=== PATIENT | male | born 1940 | race Caucasian/White ===

== ENCOUNTER 2018-04-08 10:23 | Day surgery (SDC) | payer MEDICARE ==
[~2018-04-08] VITALS: Ht 170.2 cm; Wt 86.2 kg
[~2018-04-08 10:23] MED LIST: ALLOPURINOL300 MG PO; ASPIRIN 8181 MG PO; ATENOLOL50 MG PO; DEBROX6.5 % AD; FISH OIL1400 MG PO; FLUARIX QUADRIV1 INJ IM; GLIMEPIRIDE4 MG PO; INDAPAMIDE2.5 MG PO; JANUVIA100 MG PO; LATANOPROST0.005 % OP; LISINOP/HCTZ1 TA1 PO; LISINOPRIL20 MG PO; METFORMIN HCL1000 MG PO; PAROXETINE20 MG PO; POTASSIUM CITR15 MEQ PO; PRAVASTATIN40 MG PO; PRILOSEC20 MG PO; RANITIDINE150 MG PO; SLO-MAG PO; TAMSULOSIN0.4 MG PO
[2018-04-08 14:26] VITALS: BP 122/72
== END 2018-04-08 14:15 | disposition home or self-care (01) ==
LOC: ENDO 10:23 → ORM 14:00 → ENDO 14:10
PROVIDERS: ATTEND Internal Medicine Gastroenterology
PROC: 0DBE8ZX Excision of Large Intestine, Via Natural or Artificial Opening Endoscopic, Diagnostic (ICD-10-PCS; principal; 2018-04-08)
PROC: 0DBN8ZX Excision of Sigmoid Colon, Via Natural or Artificial Opening Endoscopic, Diagnostic (ICD-10-PCS; 2018-04-08)
PROC: 0DBL8ZX Excision of Transverse Colon, Via Natural or Artificial Opening Endoscopic, Diagnostic (ICD-10-PCS; 2018-04-08)
PROC: 0DBH8ZX Excision of Cecum, Via Natural or Artificial Opening Endoscopic, Diagnostic (ICD-10-PCS; 2018-04-08)
PROC: 0DB98ZX Excision of Duodenum, Via Natural or Artificial Opening Endoscopic, Diagnostic (ICD-10-PCS; 2018-04-08)
PROC: 0DB48ZX Excision of Esophagogastric Junction, Via Natural or Artificial Opening Endoscopic, Diagnostic (ICD-10-PCS; 2018-04-08)
DX: K57.31 Diverticulosis of large intestine without perforation or abscess with bleeding (principal); K64.4 Residual hemorrhoidal skin tags; K64.8 Other hemorrhoids; R19.7 Diarrhea, unspecified; D12.0 Benign neoplasm of cecum; D12.5 Benign neoplasm of sigmoid colon; D12.3 Benign neoplasm of transverse colon; K29.70 Gastritis, unspecified, without bleeding; K21.9 Gastro-esophageal reflux disease without esophagitis; K44.9 Diaphragmatic hernia without obstruction or gangrene; I10 Essential (primary) hypertension; E78.00 Pure hypercholesterolemia, unspecified; Z79.899 Other long term (current) drug therapy; Z86.010 Personal history of colon polyps; Z87.442 Personal history of urinary calculi; Z85.828 Personal history of other malignant neoplasm of skin

== ENCOUNTER 2023-01-16 21:07 | Observation (INO) | payer OTHER, MEDICARE ==
[2023-01-16] VITALS (11 sets, daily range): BP systolic 111–169; BP diastolic 51–100
[~2023-01-16] VITALS: Ht 170.2 cm; Wt 87.0 kg
[2023-01-16 21:51] LABS: BASO% 0.1 % (0-3); HEMOGLOBIN 12.7 g/dl (14.0-18.0); IMMATURE GRANULOCYTES 0.2 % (0.0-5.0); LYMPH% 7.8 % (15-41); MEAN CELL VOLUME 91.4 fL CALC (80.0-100.0); MEAN CORPUSCULAR HGB 30.4 pG CALC (26.0-32.0); MEAN CORPUSCULAR HGB CONC 33.2 g/dL CAL (32.0-36.0); MONO% 2.7 % (2-13); NEUT# 8.12 thou/uL (1.82-7.42); NEUT% 89.2 % (42-76); RED BLOOD COUNT 4.18 mill/uL (4.70-6.10)
[2023-01-16 21:52] LABS: HEMATOCRIT 38.2 % (39.0-50.0)
--- NOTE | 2023-01-16 22:00 | NUR ---
PT BROUGHT IN BY KINA WITH COMPLAINTS OF WEAKNESS. PT WHEELED TO ROOM 10 FOR TRAIGE AND CARE
[2023-01-16 22:04] LABS: ALBUMIN 3.9 g/dL (3.2-5.0); ALKALINE PHOSPHATASE 85 u/l (38-126); BUN 30 mg/dL (8-23); BUN/CREATININE RATIO 16 (12-20 (CALC)); CHLORIDE 105 mmol/l (95-108); CREATININE 1.8 mg/dL (0.7-1.3); GFR FOR AFR.AMER. 44 ML/MIN (>=60 (CALC)); GFR OTHER RACES 36 ML/MIN (>=60 (CALC)); SGOT/AST 24 u/l (19-48); TOTAL PROTEIN 6.8 g/dL (6.3-8.2)
[2023-01-16 22:07] LABS: ANION GAP 18 (6-22 (CALC)); BILIRUBIN, TOTAL 0.2 mg/dL (0.2-1.3); CARBON DIOXIDE 20 mmol/l (22-30); POTASSIUM 3.9 mmol/l (3.5-5.1); SODIUM 139 mmol/l (137-146)
[2023-01-16] MEDS ORDERED: VALTREX500 MG PO (22:39)
[2023-01-16] MEDS ORDERED: PREDNISONE20 MG PO (22:40)
[2023-01-17] VITALS (23 sets, daily range): BP systolic 125–171; BP diastolic 71–98
[2023-01-17 03:04] LABS: URINE BILIRUBIN - DIPSTICK NEGATIVE (NEGATIVE); URINE BLOOD DIPSTICK NEGATIVE (NEGATIVE); URINE COLOR YELLOW; URINE GLUCOSE - DIPSTICK NEGATIVE (NEGATIVE); URINE KETONE TRACE mg/dL (NEGATIVE); URINE LEUK ESTERASE NEGATIVE (NEGATIVE); URINE NITRITE - DIPSTICK NEGATIVE (Negative); URINE PROTEIN - DIPSTICK NEGATIVE (NEG-TRACE); URINE SPECIFIC GRAVITY 1.015; URINE UROBILINOGEN - DIPSTICK 0.2 E.U./dL (0.2)
--- NOTE | 2023-01-17 04:54 | NUR ---
PT SLEEPING AT THIS TIME. WAITING FOR A ROOM ON THE FLOOR
--- NOTE | 2023-01-17 05:00 | NUR ---
REPORT GIVEN TO ICU. PT WILL BE TAKEN UP STAIRS IN BED
--- NOTE | 2023-01-17 07:35 | NUR ---
REPORT RECEIVED FROM WEATHERSEAL TECHNICIAN - PT OBSERVED IN BED WITH EYES CLOSED - STABLE ON MONITOR - NO S/S DISTRESS - CALL LIGHT IN REACH
--- NOTE | 2023-01-17 09:00 | NUR ---
PT RESTING IN BED - MRI SCREENING COMPLETE, AWAITING CALL TO SEND PT - NO CONCERNS AT THIS TIME
--- NOTE | 2023-01-17 11:00 | NUR ---
MRI COMPLETED - PENDING RESULTS
--- NOTE | 2023-01-17 13:00 | NUR ---
PT RESTING IN BED WITH DAUGHTER BEDSIDE - NO S/S DISTRESS ON ROOM AIR - PT DENIES PAIN OR ANY NEEDS - CALL LIGHT IN REACH
--- NOTE | 2023-01-17 15:42 | NUR ---
PT READING A BOOK IN CHAIR - UP AD MIKE - NO CONCERNS FOR SAFETY - DENIES ANY NEEDS - CALL LIGHT IN REACH
--- NOTE | 2023-01-17 17:37 | NUR ---
PT EATING DINNER BEDSIDE - DENIES ANY NEEDS - NO S/S DISTRESS - CALL LIGHT IN REACH
[2023-01-18 00:01] VITALS: BP 154/84
[2023-01-18 04:01] VITALS: BP 161/87
[2023-01-18 05:52] LABS: HEMATOCRIT 37.9 % (39.0-50.0); HEMOGLOBIN 12.3 g/dl (14.0-18.0); MEAN CELL VOLUME 93.8 fL CALC (80.0-100.0); MEAN CORPUSCULAR HGB 30.4 pG CALC (26.0-32.0); MEAN CORPUSCULAR HGB CONC 32.5 g/dL CAL (32.0-36.0); RED BLOOD COUNT 4.04 mill/uL (4.70-6.10); RED CELL DISTRI WIDTH 13.1 % (11.5-15.5)
[2023-01-18 06:12] LABS: ALKALINE PHOSPHATASE 60 u/l (38-126); ANION GAP 7 (6-22 (CALC)); BUN 22 mg/dL (8-23); BUN/CREATININE RATIO 22 (12-20 (CALC)); CARBON DIOXIDE 24 mmol/l (22-30); CHLORIDE 110 mmol/l (95-108); GFR FOR AFR.AMER. > 60 ML/MIN (>=60 (CALC)); GFR OTHER RACES > 60 ML/MIN (>=60 (CALC)); MAGNESIUM 1.5 mg/dL (1.6-2.3); POTASSIUM 3.9 mmol/l (3.5-5.1); SGOT/AST 24 u/l (19-48); SODIUM 137 mmol/l (137-146)
[2023-01-18 06:17] LABS: ALBUMIN 3.1 g/dL (3.2-5.0); BILIRUBIN, TOTAL 0.4 mg/dL (0.2-1.3); TOTAL PROTEIN 5.4 g/dL (6.3-8.2)
--- NOTE | 2023-01-18 07:00 | NUR ---
REPORT RECEIVED FROM MANISHA SINGHSOFTWARE SALESSWIMMING POOL SERVICEPERSON. PATIENT OBSERVED RESTING IN BED WITH EYES CLOSE. STABLE ON MONITOR. NO S-S DISTRES. SAFETY AND FALL PRECAUTIONS IN PLACE. CALL LIGHT WITHIN IN REACH.
[2023-01-18 08:00] VITALS: BP 165/90
[2023-01-18 08:09] VITALS: BP 165/90
[2023-01-18 08:24] VITALS: BP 165/90
--- NOTE | 2023-01-18 08:57 | NUR ---
Patient alert and oriented x3. Assessment head-to toe complete. Distress or pain is not observed at the time of this note. Patient is educated aboud medications, nursing plan for today. Dr. Spangler Goes round educates patient about medications at home, Dx. plan and possible DC for today. Patient refer understand. Safety and fall precautions in place. Call light within in reach.
--- NOTE | 2023-01-18 10:25 | NUR ---
Discharge instructions given. Patient verbalizes understanding of same. Discharged in stable condition via Wheelchair to Home with staff. All belongings sent with pt.
== END 2023-01-18 10:10 | disposition home or self-care (01) | DRG 74 ==
LOC: ED 21:07 → ED-I 01-17 00:01 → ED 01-17 00:29 → ICU 01-17 00:30 → ED-I 01-17 00:30 → ICU 01-17 04:21
PROVIDERS: Emergency Medicine; ADMIT Internal Medicine; ATTEND Internal Medicine
DX: G51.0 Bell's palsy (principal); R41.82 Altered mental status, unspecified; I10 Essential (primary) hypertension; E78.5 Hyperlipidemia, unspecified; C43.9 Malignant melanoma of skin, unspecified; Z79.899 Other long term (current) drug therapy
CPT/HCPCS: A9579; J3475; Q9967